=== PATIENT | male | born 1980 | race African-American/Black ===

== ENCOUNTER 2020-06-10 06:06 | Emergency (ER) | payer MEDICAID ==
[~2020-06-10] VITALS: Ht 193 cm; Wt 77.1 kg
--- NOTE | 2020-06-10 06:29 | NUR ---
PT CAME TO THE ED C/O SI W/ A PLAN TO RUN INTO TRAFFIC. PT DENIES HI. PT AAOX4, VSS, RESPIRATIONS EVEN AND UNLABORED ON RA W/ NAD NOTED. PT CONNECTED TO THE MONITOR AND POX. PT CHANGED INTO GOWN, BELONGINGS PLACED TO LOCKER, SUICIDE PRECAUTIONS IMPLEMENTED. SITTER AT BEDSIDE FOR SAFETY
[2020-06-10 07:04] LABS: BASOPHILS # (AUTO) 0.1 /CMM (0.0-0.2); BASOPHILS % (AUTO) 0.7 % (0.0-2.0); HEMATOCRIT 36 % (39-51); HEMOGLOBIN 11.7 g/dL (13.5-17.5); LYMPHOCYTES # (AUTO) 1.7 /CMM (0.8-4.8); LYMPHOCYTES % (AUTO) 16.7 % (20.0-44.0); MEAN CORPUSCULAR HGB CONC 33 g/dl (31.0-36.0); MEAN CORPUSCULAR VOLUME 86 fL (80-96); MONOCYTES # (AUTO) 0.8 /CMM (0.1-1.30); MONOCYTES % (AUTO) 7.3 % (2.0-12.0); NEUTROPHILS # (AUTO) 7.1 /CMM (1.8-8.9); NEUTROPHILS % (AUTO) 68.3 % (43.0-81.0); PLATELET COUNT (AUTO) 400 /CMM (150-450); RED BLOOD CELL COUNT(AUTO) 4.14 MIL/uL (4.5-6.0); WHITE BLOOD COUNT (AUTO) 10.3 K/uL (4.3-11.0)
[2020-06-10 07:14] LABS: APPEARANCE,URINE CLEAR (CLEAR); BILIRUBIN,URINE NEGATIVE (NEGATIVE); BLOOD, URINE NEGATIVE Ery/uL (NEGATIVE); COLOR,URINE YELLOW (YELLOW); KETONES,URINE NEGATIVE (NEGATIVE); LEUKOCYTE ESTERASE ,URINE TRACE (NEGATIVE); NITRITE, URINE NEGATIVE (NEGATIVE); PROTEIN,URINE NEGATIVE (NEGATIVE); UGLUCOSE NEGATIVE (NEGATIVE); UROBILINOGEN,URINE 0.2 EU/dL (0.2)
[2020-06-10 07:17] LABS: CALCIUM, SERUM 7.5 mg/dL (8.5-10.1); CARBON DIOXIDE 29 mmol/L (21-32); CHLORIDE 106 mmol/L (98-107); CREATININE 0.9 mg/dL (0.6-1.3); GLUCOSE 87 mg/dL (74-106); POTASSIUM 3.6 mmol/L (3.5-5.1); SODIUM SERUM 142 mmol/L (136-145); UREA NITROGEN, BLOOD 9 mg/dL (7-18)
[2020-06-10 07:21] LABS: ACETAMINOPHEN < 10 ug/ml (10-30); ALANINE AMINOTRANSFERASE 27 U/L (12-78); ALBUMIN 3.6 g/dL (3.4-5.0); ALCOHOL, BLOOD 8 mg/dL (0-0); ALKALINE PHOSPHATASE 61 U/L (46-116); ASPARTATE AMINOTRANSFERASE 29 U/L (15-37); BILIRUBIN,DIRECT 0.1 mg/dL (0.0-0.2); BILIRUBIN,TOTAL 0.2 mg/dL (0.2-1.0); SALICYLATE 3.3 mg/dL (2.8-20.0); TOTAL PROTEIN, SERUM 7.3 g/dL (6.4-8.2)
[2020-06-10 07:28] LABS: BACTERIA,URINE Rare /HPF (None Seen); RBC,URINE 0-2 /HPF (0-2); SQUAMOUS EPITHELIAL CELL,UR Rare /HPF (None Seen)
--- NOTE | 2020-06-10 08:34 | NUR ---
CALLED [facility], SPOKE WITH OSMAN, WILL CALL BACK WHEN THEY HAVE A BED AVAILABLE
--- NOTE | 2020-06-10 08:53 | NUR ---
This SW to fax clinicals to Rey at [facility] (fax)
--- NOTE | 2020-06-10 10:36 | NUR ---
PATIENT ACCEPTED AT [facility]: ACCEPTING: DR LYONS REPORT: SHAILESH - [phone]
--- NOTE | 2020-06-10 10:51 | NUR ---
REPORT GIVEN TO [facility]
--- NOTE | 2020-06-10 11:32 | NUR ---
[facility] ETA 1300.
--- NOTE | 2020-06-10 12:33 | NUR ---
Report given to EMT for transport to [facility]
[2020-06-10 12:34] VITALS: BP 128/87
--- NOTE | 2020-06-10 16:10 | NUR ---
9:45am building services engineer consult requested by MEGAN Thornton for voluntary psychiatric treatment. Per MD notes, patient presented to [facility] ED for suicidal ideation and plan to jump into traffic. Patient is alert and oriented x4. Patient is a 39-year-old Male. Patient confirmed date of and social security number on face sheet. Patient reports living with sister Brittany and her family, a total of 6 people in the home. Patient reports that he can do ADLs and IADLs independently. Patient reports that he receives approximately $945 in social security. Patient reports drinking alcohol, reporting a bottle of gin a day. Patient reports he has stopped using drugs, but patient was unable (or willing)see #1 below to provide the amount of time he has been sober. Patient reports smoking cigarettes, approximately 1 pack a day. Patient reports being diagnosed with bipolar disorder, Been diagnosed for a while, patient could not provide age of diagnosis. Patient reports that in the past, the patient did have a primary psychiatrist but currently receives medications at hospitals. Patient reports audio hallucinations different things but patient did not report these hallucinations to include harming himself or anyone else. Patient denies visual hallucinations. Patient reports current suicidal ideation and plan to jump into traffic. Patient denies homicidal ideation. Patient would like to undergo voluntary psychiatric treatment. This SW to fax clinicals to Rey at [facility] . This SW to remain available for all needs regarding this patient.
== END 2020-06-10 12:34 | disposition home or self-care (01) ==
LOC: ER 06:12
DX: R45.851 Suicidal ideations (principal); F31.9 Bipolar disorder, unspecified; Z59.0 Homelessness
CPT/HCPCS: 36415; 80048; 80076; 80305; 80307; 80329; 81001; 85025; 99285; G0480; 81000-TC